=== PATIENT | male | born 1965 | race Caucasian/White ===

== ENCOUNTER → 2016-08-18 | Outpatient (CLI) | payer OTHER ==
[~2016-08-18] MED LIST: HYDR-3989 PO; IOHEXOL 300 MG/ML 100ml INJECTION ONE; METH10TA7 PO; NORMAL SALINE 100 ML ONE; SALINE FLUSH 10ml SYRINGE ONE
--- NOTE | 2016-08-18 17:25 | DI ---
Indication: ITS.REASON: R10.[address] ABD/PELVIS W/CONTRAST ONLY: Comparison: None Technique: Patient scanned from above the diaphragm to below the pubic sepsis after 100 cc Omni 300 intravenous contrast is used. Dose reduction imaging technologies utilized with reformatted sagittal and coronal image planes. Findings: Heart size is within normal limits. Patient showed some mild chronic appearing changes in the lung bases with slightly increased markings bilaterally. No pleural effusions are seen. Small sliding-type hiatal hernia observed. Patient shows homogeneous texture to the liver. Gallbladder shows no obvious stones, wall thickening and there is no dilation of the common duct. Spleen is unremarkable. Pancreas and both adrenals are unremarkable. Patient shows bilateral nonobstructing kidney stones with the largest on the left side measuring 6 mm. No dilation the ureters are appreciated. Patient demonstrates an area of more focal increased mesenteric fat density along the right mid to lower quadrant anteriorly. This may represent some acute mesenteritis. No free air or significant free fluid is identified. Patient shows diverticulosis involving the descending and sigmoid colon although this area does not suggest acute diverticulitis. No obstruction to the bowel is identified. No other acute pelvic findings are seen. Bladder contour is unremarkable. Reformatted images showed no fractures involving the spine. Impression: 1. Focal area of increased mesenteric fat density in the anterior right mid to lower abdomen most likely some sort of focal mesenteritis. 2. Bilateral nonobstructing kidney stones 3. Fairly extensive diverticulosis involving the distal descending and sigmoid colon without obstruction or acute diverticulitis in that region. 4. Findings were directly called to the ordering clinician when study provided. .
== END ==
LOC: IMA 16:38
PROVIDERS: ATTEND Family Medicine
DX: K57.30 Diverticulosis of large intestine without perforation or abscess without bleeding (principal); K66.8 Other specified disorders of peritoneum; N20.0 Calculus of kidney; R10.31 Right lower quadrant pain
CPT/HCPCS: 74177; J7050; Q9967